=== PATIENT | male | born 1965 | race Caucasian/White ===

== ENCOUNTER 2022-03-13 19:29 | Emergency (ER) | payer OTHER ==
[2022-03-13] MEDS ORDERED: hydrOXYzine HCl 25 MG Tab PO ONE (20:43)
== END 2022-03-13 21:02 | disposition home or self-care (01) ==
LOC: JP.ED 19:29
DX: L13.0 Dermatitis herpetiformis (principal); L50.9 Urticaria, unspecified; L29.9 Pruritus, unspecified
CPT/HCPCS: 99282; 99284; A9270